=== PATIENT | female | born 1945 | race Caucasian/White ===

== ENCOUNTER 2024-04-22 17:23 | Inpatient (IN) | payer MEDICARE ==
[2024-04-22] MEDS ORDERED: NALOXONE 0.4 MG/ML 1 ML VIAL IV PRN (18:04)
[2024-04-22] MEDS: SODIUM CHLORIDE 0.9% 1,000 ML IV ONE (18:06)
--- NOTE | 2024-04-22 18:10 | ED ---
General Adult HPI - General Stated complaint: Stemi Time Seen by Provider: 04/22/24 18:04 - History of Present Illness Initial comments: Dictation was produced using [employer] dictation software. please excuse any grammatical, word or spelling errors. Chief Complaint: 78-year-old female presents with inferior OR History of Present Illness: Patient is 78-year-old female presents to the emergency department as a transfer from [facility]. Patient allegedly was having difficulties getting groceries into her car and all of a sudden she started to feel faint. She ended up at [facility] where she became unresponsive. She was intubated. An EKG was performed showing inferior OR. Unclear if patient had a V-fib arrest. I did speak with Dr. Shrestha at [facility] who states that he spoke with [facility] apparel merchandiser who kannan mmended patient be transferred to closest [facility] [employer]. Unclear what patient's medical history is or CODE STATUS. Unable to obtain ROS secondary to mental status Review of Systems ROS Statement: Those systems with pertinent positive or pertinent negative responses have been documented in the HPI. ROS Other: All systems not noted in ROS Statement are negative. General Exam - General Exam Comments Initial Comments: PHYSICAL EXAM: General Impression: intubated HEENT: Normocephalic atraumatic, 2 mm pupils Chest: Intubated Abdomen: abdomen soft, non-distended, no organomegaly Musculoskeletal: Pulses present and equal in all extremities, no peripheral edema Motor: No movement Neurological: Obtunded Skin: Intact with no visualized rashes Medical Decision Making - Medical Decision Making Was pt. sent in by a medical professional or institution (, PA, FITNESS CLUB MANAGER, urgent care, hospital, or [facility]cc...) When possible be specific @ -Sent from outside emergency department Did you speak to anyone other than the patient for history (EMS, parent, family, police, friend...)? What history was obtained from this source @ -See above. EMS also provides history present illness as described above Did you review nursing and triage notes (agree or disagree)? Why? @ -I reviewed and agree with nursing and triage notes Were old charts reviewed (outside hosp., previous admission, EMS record, old EKG, old radiological studies, urgent care reports/EKG's, [facility] records)? Report findings @ -No old charts were reviewed Differential Diagnosis (chest pain, altered mental status, abdominal pain women, abdominal pain men, vaginal bleeding, musculoskeletal, weakness, fever, dyspnea, syncope, headache, dizziness, GI bleed, back pain, seizure, CVA, palpatations, mental health)? @ -Differential Syncope: Valvular disease, hypertrophic cardiomyopathy, pulmonary embolism, tamponade, tachycardia, bradycardia, OR, hypovolemia, hemorrhage, dissection, anemia, intracranial hemorrhage, seizure, hypoglycemia, carbon monoxide poisoning, this is not meant to be an all-inclusive list. EKG interpreted by me (3pts min.). @ -None done X-rays interpreted by me (1pt min.). @ -None done CT interpreted by me (1pt min.). @ -None done U/S interpreted by me (1pt. min.). @ -None done What testing was considered but not performed or refused? (CT, X-rays, U/S, labs)? Why? @ -None What meds were considered but not given or refused? Why? @ -None Was smoking cessation discussed for >3mins.? @ -No Were there social determinants of health that impacted care today? How? (Homelessness, low income, unemployed, alcoholism, drug addiction, transportation, low edu. Level, literacy, decrease access to med. care, halfway, rehab)? @ -No Was there de-escalation of care discussed even if they declined (Discuss DNR or withdrawal of care, Hospice)? DNR status @ -No What co-morbidities impacted this encounter? (DM, HTN, Smoking, COPD, CAD, Cancer, CVA, ARF, Chemo, Hep., AIDS, mental health diagnosis, sleep apnea, morbid obesity)? @ -None Was patient admitted / discharged? Hospital course, mention meds given and route, prescriptions, significant lab abnormalities, going to OR and other pertinent info. @ -78-year-old female presents to the emergency department after suspected cardiac arrest. She presented to [facility] where she was intubated. She was found to have inferior OR. EKG from [facility] was reviewed. Code STEMI was paged prior to patient's arrival. We did received a fax EKG that showed obvious inferior STEMI. We did not receive any report of any focal neurologic deficits. There is suspicion that patient had V-fib arrest with hypoxic encephalopathy. Dr. Muñoz was in the emergency department evaluated patient and patient disposition immediately to cardiac [facility] [employer] for stat cardiac cath. Patient will be admitted to ICU. Case discussed with apparel merchandiser, burr grinder Dr. Santamaria and [facility] group hospitalist. Did you discuss the management of the patient with other professionals (professionals i.e. , PA, FITNESS CLUB MANAGER, lab, RT, psych nurse, public health social worker, psychiatric technician assistant, teacher, electrical engineering drafting officer, case hardener)? Give summary @ -Case discussed with Dr. Muñoz described above Was critical care preformed (if so, how long)? @ -yes, 33 minutes Undiagnosed new problem with uncertain prognosis? @ -No Drug Therapy requiring intensive monitoring for toxicity (Heparin, Nitro, Insulin, Cardizem)? @ -No Were any procedures done? @ -No Diagnosis/symptom? Acute, or Chronic, or Acute on Chronic? Uncomplicated (without systemic symptoms) or Complicated (systemic symptoms)? @ -Inferior STEMI Side effects of treatment? @ -No Exacerbation, Progression, or Severe Exacerbation? @ -No Poses a threat to life or bodily function? How? (Chest pain, USA, OR, pneumonia, PE, COPD, DKA, ARF, appy, cholecystitis, CVA, Diverticulitis, Homicidal, Suicidal, threat to staff... and all critical care pts) @ -yes Disposition Clinical Impression: STEMI (ST elevation myocardial infarction) Disposition: ADMITTED IP TO THIS [facility] Condition: Critical Referrals: Nonstaff,Physician [Primary Care Provider] - 1-2 days Decision Time: 18:12
[2024-04-22] MEDS ORDERED: ASPIRIN 81 MG ONE (18:19)
--- NOTE | 2024-04-22 18:19 | P.CRDCN ---
History of Present Illness History of present illness: HISTORY OF PRESENTING ILLNESS This is a pleasant 78-year-old with past medical history significant for only apparently hyperlipidemia who presents secondary to cardiac arrest. Patient apparently had been shopping and then became unresponsive. Somehow patient was then transferred by personal vehicle to [facility].patient was unresponsive and intubated and sedated. EKG showed inferior ST elevation with small Q waves and therefore STEMI was called and patient transferred to [facility]. Patient currently intubated and no history. Per EMS with transfer no reported issues or recent illness previous to this. Unclear how long downtime. No need for any vasopressors. PHYSICAL EXAMINATION Vital signs reviewed. CONSTITUTIONAL: No apparent distress, intubated and sedated, pupils pinpoint and not reactive. HEENT: Head is normocephalic. Pupils are equal, round. Sclerae anicteric. Mucous membranes of the mouth are moist. No JVD. No carotid bruit. CHEST EXAMINATION: Lungs are clear to auscultation. No chest wall tenderness is noted on palpation or with deep breathing. HEART EXAMINATION: Regular rate and rhythm. S1, S2 heard. No murmurs, gallops or rub. ABDOMEN: Soft, nontender. Positive bowel sounds. EXTREMITIES: 2+ peripheral pulses, no lower extremity edema and no calf tenderness. NEUROLOGIC EXAMINATION: Patient is sedated and intubated ASSESSMENT Inferior STEMI altered mental status, appears cardiac arrest with no need for shock, unclear downtime history of hyperlipidemia PLAN Emergency heart catheterization , stenting as needed. Aspirin, heparin. monitor neurologic response. Check 2-D echo. Trend blood work. Further recommendations to follow. Results Current Medications Generic Name Dose Route Start Last Admin Trade Name Freq PRN Reason Stop Dose Admin Sodium Chloride 1,000 mls @ 20 mls/hr 04/22/24 18:15 Saline 0.9% IV .Q24H [facility] Naloxone HCl 0.2 mg 04/22/24 18:04 Naloxone 0.4 Mg/Ml 1 Ml Vial IV Q2M PRN Opioid Reversal
[2024-04-22] MEDS: ASPIRIN 81 MG OG-TUBE ONE (18:22)
[2024-04-22] MEDS: LIDOCAINE 1% INJ 10MG/ML (20 ML MDV) SQ ONE (18:23)
[2024-04-22] MEDS: VERAPAMIL SYRINGE (5 MG/10 ML) INTRAARTER ONE (18:25)
[2024-04-22] MEDS ORDERED: VERAPAMIL 2.5 MG/ML 2 ML AMP ONE (18:29)
[2024-04-22] MEDS: IOPAMIDOL-370 200ML BTL INJ ONE (18:40)
[2024-04-22] MEDS ORDERED: RX INFO: IV CONTRAST WAS GIVEN 1 EACH MISC MISCELLANE PRN (18:58)
--- NOTE | 2024-04-22 18:58 | P.CARDCATH ---
Description of Procedure: PROCEDURES PERFORMED: Left heart catheterization, bilateral coronary angiography, ultrasound guided arterial access INDICATION: STEMI CONSENT:I have discussed the risks, benefits and alternative therapies for the above-mentioned procedure and for both sedation/analgesia as well as necessary blood product administration, if indicated, as they pertain to this patient. The patient has indicated understanding and acceptance of the risks and procedures discussed. PROCEDURE: After the risks, benefits and alternatives of the above mentioned procedure explained in detail with the patient, informed consent was obtained. Patient was taken to the catheterization lab and prepped and draped in usual fashion. patient had been transferred from outside hospital secondary to inferior ST elevation noted on the initially upon arrival. By the time she presented to laborer driver her EKG had normalized.Ultrasound guidance was used to assess for arterial access. 1% lidocaine was used to anesthetize the right radial artery. A 6-Gibraltarian sheath was placed in the right radial artery using modified Seldinger technique and ultrasound guidance. Left coronary angiography was performed with a 5-Gibraltarian JL 3.5 catheter and right coronary angiography was performed with a 5-Gibraltarian FR5 catheter in various views. A 5-Gibraltarian FR5 catheter was inserted into the left ventricle and pressure measurements were obtained. The right radial sheath was removed and a TR band was placed with hemostasis achieved. The patient tolerated the procedure well. Patient was transported back to the post catheterization holding area in stable condition. Conscious Sedation: Patient was monitored under the direct supervision of myself for conscious sedation using Versed and fentanyl for a total duration of 30 minutes HEMODYNAMICS: aorta: 145/72 SELECTIVE CORONARY ARTERIOGRAPHY: LEFT MAIN: The left main is a large caliber vessel which bifurcates into the LAD and circumflex. There is no significant stenosis. LEFT ANTERIOR DESCENDING CORONARY ARTERY: LAD is a large caliber vessel which wraps around to the apex. There are mild luminal irregularities. LEFT CIRCUMFLEX CORONARY ARTERY: Left circumflex is a moderate caliber vessel with 10-20% proximal circumflex stenosis and otherwise mild luminal irregularities. RIGHT CORONARY ARTERY: The right coronary artery is a large caliber vessel which gives off a PDA and PLV branch and is the dominant vessel. There is a mid RCA 30% smooth stenosis and otherwise mild luminal irregularities. FINAL IMPRESSION: 1. Mild CAD including up to 30% mid RCA and 10-20% proximal circumflex stenosis. PLAN: 1. Aggressive risk factor modification per most recent ACC/AHA guidelines. 2. Initial EKG was consistent with inferior STEMI and may have been plaque rupture and recanalization or vasospasm however evaluate other causes of presentation.
--- NOTE | 2024-04-22 19:56 | CT ---
EXAMINATION TYPE: CT brain wo con CT DLP: 1095.7 mGycm, Automated exposure control for dose reduction was used. DATE OF EXAM: 04/22/2024 7:30 PM COMPARISON: None. CLINICAL INDICATION: Female, 78 years old with history of re: AMS, AMS TECHNIQUE: Brain: Axial CT images of the brain were obtained with coronal and sagittal reformats created and rev iewed. Contrast used: None. Oral contrast used: None. FINDINGS: Brain: Extra-axial spaces: Abnormal blood products within the sulci throughout the exam right greater than l eft. Ventricular system: Density blood products are seen within the bilateral lateral ventricles the cereb ral aqueduct the third ventricle and fourth ventricle. Cerebral parenchyma: Interparenchymal hemorrhage within the right frontal lobe which extends into the right lateral ventricle, the left lateral ventricle the cerebral aqueduct and the fourth ventricle. Blood products are also seen in the basilar cisterns. Cerebellum: Within normal limits. Mass effect: Leftward shift up to 12 mm Intracranial vasculature: Atherosclerotic calcifications of the intracranial vessels. Soft tissues: Normal. Calvarium/osseous structures: No depressed skull fracture. Paranasal sinuses and mastoid air cells: Mild scattered paranasal sinus disease. Visualized orbits: Bilaterally aphakia. IMPRESSION: Acute right frontal lobe intraparenchymal hemorrhage with subarachnoid hemorrhage, and intraventricul ar hemorrhage. There is leftward midline shift suggesting subfalcine herniation. MRI Findings communicated to Dr. Steven coleman Provider operations support representative on 04/22/2024 7:[address] Andrade fry.
[2024-04-22] MEDS: SODIUM CHLORIDE 3%(HYPERTONIC) 500 ML IV SCH (20:10)
[2024-04-22 20:13] VITALS: RESP 18; TEMP 97.9
[2024-04-22 20:13] LABS: ALT 23 U/L (4-34); AST 50 U/L (14-36); African American GFR (CKD) >90 (>60 ml/min/1.73 sqM); Albumin 4.1 g/dL (3.5-5.0); Alkaline Phosphatase 65 U/L (38-126); Anion Gap 14 mmol/L; Blood Urea Nitrogen 25 mg/dL (7-17); Calcium 9.2 mg/dL (8.4-10.2); Carbon Dioxide 23 mmol/L (22-30); Chloride 106 mmol/L (98-107); Glucose 181 mg/dL (74-99); Magnesium 1.8 mg/dL (1.6-2.3); Non-African American GFR(CKD) 82 (>60 ml/min/1.73 sqM); Potassium 3.3 mmol/L (3.5-5.1); Sodium 143 mmol/L (137-145); Total Bilirubin 0.6 mg/dL (0.2-1.3); Total Protein 6.8 g/dL (6.3-8.2)
--- NOTE | 2024-04-22 20:42 | XR ---
EXAMINATION TYPE: XR chest 1V portable DATE OF EXAM: 04/22/2024 8:18 PM CLINICAL INDICATION: Female, 78 years old with history of Tube placement; [facility] COMPARISON: None TECHNIQUE: XR chest 1V portable Frontal view of the chest. FINDINGS: Lungs/Pleura: There is no evidence of pleural effusion, focal consolidation, or pneumothorax. Pulmonary vascularity: Pulmonary vascular congestion. Heart/mediastinum: Cardiomediastinal silhouette is unremarkable. Musculoskeletal: No acute osseous pathology. Other findings: None Lines/Tubes: Endotracheal tube with distal tip xx cm above the dieter. Nasogastric tube with its distal tip and side-port projecting under the diaphragm. IMPRESSION: 1. Support tubes in appropriate position. mild pulmonary vascular congestion.
[2024-04-22] MEDS: SODIUM CHLORIDE 0.9% 1,000 ML IV SCH ×2 (21:35)
[2024-04-22] MEDS: CHLORHEXIDINE GLUCONATE 15 ML CUP MUCOUS MEM SCH (21:36)
[2024-04-22 21:44] LABS: HCT 40.4 % (34.0-46.0); HGB 13.1 gm/dL (11.4-16.0); Lymphocytes % (A) 10 %; MCH 33.4 pg (25.0-35.0); MCHC 32.4 g/dL (31.0-37.0); MCV 103.1 fL (80.0-100.0); Macrocytosis Slight; Mean Platelet Volume 10.6; Neutrophils % (A) 84 %; Platelet Count 266 k/uL (150-450); RBC 3.92 m/uL (3.80-5.40); RDW 13.7 % (11.5-15.5); WBC 24.3 k/uL (3.8-10.6)
[2024-04-22 21:45] LABS: Basophils # (A) 0.2 k/uL (0-0.2); Basophils % (A) 1 %; Eosinophils % (A) 0 %; Lymphocytes # (A) 2.5 k/uL (1.0-4.8); Monocytes % (A) 4 %; Neutrophils # (A) 20.4 k/uL (1.3-7.7)
[2024-04-22 22:07] VITALS: BP 149/71; PULSE 55
== END 2024-04-22 22:05 | disposition short-term general hospital (02) | DRG 280 ==
LOC: EC 17:23 → 2SICU 18:04
PROVIDERS: ADMIT Hospitalist; ATTEND Hospitalist
PROC: B2111ZZ Fluoroscopy of Multiple Coronary Arteries using Low Osmolar Contrast (ICD-10-PCS; 2024-04-22)
PROC: 5A1935Z Respiratory Ventilation, Less than 24 Consecutive Hours (ICD-10-PCS; 2024-04-22)
PROC: 4A023N7 Measurement of Cardiac Sampling and Pressure, Left Heart, Percutaneous Approach (ICD-10-PCS; principal; 2024-04-22 18:06)
DX: I21.3 ST elevation (STEMI) myocardial infarction of unspecified site (principal); I46.9 Cardiac arrest, cause unspecified; I21.19 ST elevation (STEMI) myocardial infarction involving other coronary artery of inferior wall; I25.10 Atherosclerotic heart disease of native coronary artery without angina pectoris; E78.5 Hyperlipidemia, unspecified
CPT/HCPCS: 70450; 71045; 80053; 83735; 84484; 85025; 93458; 94002